=== PATIENT | male | born 1980 | race Native Hawaiian/Other Pacific Islander ===

== ENCOUNTER 2020-10-20 20:29 | Emergency (ER) | payer OTHER ==
[~2020-10-20] VITALS: Ht 167.6 cm; Wt 97.5 kg
[2020-10-20 21:16] LABS: PLATELET COUNT 283 K/uL (142-355)
[2020-10-20 21:24] LABS: POTASSIUM 3.8 mmol/L (3.6-5.2); SODIUM 135 mmol/L (136-145)
[2020-10-20 21:31] LABS: PARTIAL THROMBOPLASTIN TIME 27.6 SECONDS (24.5-33.6)
[2020-10-20 21:53] VITALS: BP 143/84; TEMP 98.3
== END 2020-10-20 21:53 | disposition home or self-care (01) ==
LOC: ED 20:29
PROVIDERS: Hospitalist
DX: I16.0 Hypertensive urgency (principal); R07.89 Other chest pain
CPT/HCPCS: 36415; 80053; 82550; 83880; 84484; 85027; 85610; 85730; 93005; 99283

== ENCOUNTER 2021-01-28 11:12 | Outpatient (CLI) | payer OTHER | END 2021-01-28 21:32 | disposition home or self-care (01) | LOC: INF 11:12 | PROVIDERS: ATTEND Internal Medicine | DX: Z23 Encounter for immunization (principal) | CPT/HCPCS: 96372 ==

== ENCOUNTER 2021-02-25 09:16 | Outpatient (CLI) | payer OTHER | END 2021-02-25 19:30 | disposition home or self-care (01) | LOC: INF 09:16 | PROVIDERS: ATTEND Internal Medicine | DX: Z23 Encounter for immunization (principal) | CPT/HCPCS: 96372 ==

== ENCOUNTER 2021-04-14 08:23 | Outpatient (CLI) | payer OTHER | END 2021-04-14 21:42 | disposition home or self-care (01) | LOC: RESP 08:23 | PROVIDERS: ATTEND Family Medicine | DX: R07.9 Chest pain, unspecified (principal); I10 Essential (primary) hypertension; Z68.38 Body mass index [BMI] 38.0-38.9, adult; R79.89 Other specified abnormal findings of blood chemistry ==